=== PATIENT | female | born 1985 | race Caucasian/White ===

== ENCOUNTER 2016-06-18 05:43 | Inpatient (IN) | payer BC, OTHER ==
[~2016-06-18] VITALS: Ht 154.9 cm; Wt 72.6 kg
[2016-06-18] VITALS (12 sets, daily range): BP systolic 100–126; BP diastolic 41–76
[~2016-06-18 05:43] MED LIST: PNV1TABL25 PO
[2016-06-18] MEDS ORDERED: OXYTOCIN 30 UNIT/500 ML PREMIX 500 ML IV PRN ×2 (06:45→09:00)
[2016-06-18] MEDS ORDERED: 0.9 % SODIUM CHLORIDE 10 ML DISP.SYRIN. IV PRN ×2 (06:45→09:00)
[2016-06-18] MEDS ORDERED: IBUPROFEN 600 MG TABLET. PO PRN (06:45)
[2016-06-18] MEDS ORDERED: CITRIC ACID/SODIUM CITRATE 30 ML SOLUTION. PO PRN (06:45)
[2016-06-18 06:58] LABS: BASO % 1 % (0-3); EOS % 3 % (0-3); HEMATOCRIT 36.3 % (36.0-47.0); HEMOGLOBIN 12.4 g/dL (12.0-15.5); LYMPH # 1.5 x10^3/uL (1.0-4.8); LYMPH % 22 % (24-48); MEAN CORPUSCULAR HEMOGLOBIN 31 pg (25-35); MEAN CORPUSCULAR HGB CONC 34 g/dL (31-37); MEAN CORPUSCULAR VOLUME 90 fL (79-100); MONO % 8 % (0-9); NEUT % 67 % (31-73); PLATELET COUNT 157 x10^3/uL (140-400); RED BLOOD COUNT 4.04 x10^6/uL (3.50-5.40); WHITE BLOOD COUNT 6.8 x10^3/uL (4.0-11.0)
[2016-06-18] MEDS: IV RINGERS,LACTATED 1000ML 1,000 ML IV PRN ×3 (06:59→18:34)
[2016-06-18] MEDS ORDERED: CEFAZOLIN 2GM PREMIX 50 ML IV ONE (07:00)
[2016-06-18] MEDS ORDERED: FAMOTIDINE 20 MG/2 ML VIAL ONE (07:06)
[2016-06-18] MEDS ORDERED: ONDANSETRON PF 4 MG/2 ML VIAL. ONE (07:06)
[2016-06-18] MEDS ORDERED: MORPHINE PF 5 MG/10 ML VIAL. ONE (07:07)
[2016-06-18] MEDS ORDERED: FENTANYL PF 100 MCG/2 ML VIAL. ONE (07:07)
[2016-06-18] MEDS ORDERED: OXYTOCIN 10 UNIT/ML VIAL. ONE ×2 (07:07→08:09)
[2016-06-18] MEDS ORDERED: SUCCINYLCHOLINE 200 MG/10 ML VIAL. ONE (07:08)
--- NOTE | 2016-06-18 07:23 | PDOC1 ---
OB - History Hx of Present Care: Good Care Ultrasounds: Normal mid trimester US Obstetrical Complications: None Medical Complications: None Past Family/Social History * Past Medical, Surgical, Family and Obstetric Histories reviewed from chart. Rubella: Immune RPR/VDRL: Negative GBS Status: Negative HBsAG: Negative OB - Chief Complaint & HPI Date of Admission: Date of Admission: Jun 18, 2016 at 05:43 Chief Complaint/History : 2 Para: 1 EGA: 39 Reason for admission: section Indication for : desires repeat Admission Nurse Assessment Rev: Yes Problems: OB - Admission Exam Physical Exam Vitals: VS - Last 72 Hours, by Label Date Time Temp Pulse Resp B/P Pulse Ox O2 Delivery O2 Flow Rate FiO2 06/18/16 07:11 98.2 74 20 106/76 98.2 HEENT: Normal Heart: Regular Rate Lungs: Clear Abdomen: Gravid, Non tender, Soft Extremities: Edema Reflexes: Normal Cervical Dilatation: Fingertip Effacement: 25% Station: -3 Membranes: Intact Heart Rate: Normal Accelerations: Accelerations Present Decelerations: No decelerations Contractions on Admission: >10 Minutes Apart Intensity: Mild Text A: 39 wks IUP Previous c/s P: Admit for repeat c/s. FIDELINA MCQUEEN Jr, MD Jun 18, 2016 07:23
[2016-06-18] MEDS ORDERED: EPHEDRINE PF IN SALINE 50 MG/5 ML DISP.SYRIN. IV ONE (07:51)
[2016-06-18] MEDS ORDERED: PHENYLEPHRINE in 0.9% NACL PF 1 MG/10 ML DISP.SYRIN. IV ONE (08:33)
--- NOTE | 2016-06-18 08:47 | PDOC4 ---
OB Operative Note PRE OP DIAGNOSIS: Previoujs C- section (umbilical hernia) POST OP DIAGNOSIS: Other (Same) OPERATION PERFORMED: R KTSC (and hernia repair) Surgeon Dr. Astorga Anesthesia: Regional (Spinal) Blood Loss 800 ml Specimen placenta and infant OB Findings: Position (Vertex), Sex (Male), (8/9), Weight (3495 Gram), Fluid (Clear) Complications none Additional Remarks pt. FIDELINA Leung Jr, MD Jun 18, 2016 08:47
[2016-06-18] MEDS ORDERED: MAG HYDROX/ALUMINUM HYD/SIMETH 30 ML ORAL.SUSP PO PRN (09:00)
[2016-06-18] MEDS ORDERED: ONDANSETRON PF 4 MG/2 ML VIAL. IV PRN (09:00)
[2016-06-18] MEDS ORDERED: KETOROLAC TROMETHAMINE 30 MG/ML SYRINGE. IV PRN (09:00)
[2016-06-18] MEDS ORDERED: DIPHENHYDRAMINE ORAL ELIXIR 12.5 MG/5 ML. PO PRN (09:00)
[2016-06-18] MEDS ORDERED: ZOLPIDEM 5 MG TABLET. PO PRN (09:00)
[2016-06-18] MEDS ORDERED: OXYCODONE/APAP 5/325 TABLET. PO PRN (09:00)
[2016-06-18] MEDS ORDERED: SIMETHICONE 80 MG TAB.CHEW PO PRN (09:00)
--- NOTE | 2016-06-18 10:21 | OP ---
DATE OF SURGERY: 06/18/2016 PREOPERATIVE DIAGNOSES: 1. A 39 weeks intrauterine . 2. Previous section. 3. Umbilical hernia. POSTOPERATIVE DIAGNOSES: 1. A 39 weeks intrauterine . 2. Previous section. 3. Umbilical hernia. PROCEDURES: 1. Repeat low transverse section. 2. Umbilical hernia repair. SURGEON: Dr. Fidelina Astorga. ANESTHESIA: Spinal. ESTIMATED BLOOD LOSS: 800 mL. COMPLICATIONS: None. FINDINGS: Viable male , Apgars 8 and 9. Weight 3495 grams. Three-vessel cord placenta delivered manually intact. There was also a 3 cm anterior fundal fibroid that was subserosal. There was also umbilical hernia about 3 cm size in diameter. SUMMARY: This 30-year-old 2, para 1 at 39 weeks ____ presents for repeat section as well as umbilical hernia repair. The patient was counseled on risks, benefits and expectations. She is also counseled on skin scar revision. She desires to proceed. DESCRIPTION OF PROCEDURE: The patient was taken to surgery suite and placed in dorsal supine position. She was prepped with ChloraPrep and draped in a sterile fashion. After adequate anesthesia, elliptical incision was made around the previous Pfannenstiel skin incision scar and was removed the aid of scalpel. A scalpel was then used to proceed with an incision through the fascia. The fascia was extended laterally using curved Amin scissors. The superior edge of the fascia was grasped with two Simba clamps and dissected free of the abdominal rectus muscle using blunt dissection along with sharp dissection using curved Amin scissors. Same process took place inferiorly. The abdominal rectus muscles were then dissected with sharp dissection at the midline using curved Amin scissors. The peritoneum was grasped with 2 hemostats and entered sharply with Metzenbaum scissors. This incision was extended superiorly as well as inferiorly. The Delon ring retractor was placed. Low transverse hysterotomy incision was made with scalpel down to the amniotic sac. Hysterotomy incision was extended laterally and superiorly digitally. Amniotomy was performed with ____. With the aid of fundal pressure, the infant's head was delivered in a smooth atraumatic manner. With additional fundal pressure, the anterior shoulder was delivered followed by posterior shoulder and rest of male infant was delivered. Infant was suctioned with bulb syringe orally and nasally, umbilical cord was clamped twice and cut. A viable male was handed to waiting nursing staff. Umbilical cord blood was then obtained. Three-vessel cord placenta was delivered manually intact. Uterus was then exteriorized, cleared of clot and debris with a moist lap. There was a 3 cm fibroid on the anterior portion of the fundus that was subserosal. The hysterotomy incision was reapproximated using 1-0 Vicryl suture in a running locked fashion. The [id number] sutures were placed in the right apex of the hysterotomy incision for better hemostasis. Uterus palpated firm. Fallopian tubes and ovaries appeared normal bilaterally. Posterior cul-de-sac was cleared of clot and debris with a moist lap. Uterus was returned to the abdomen. Pericolic gutters were cleared of clot and debris with moist lap. Hysterotomy incision was hemostatic. We then proceeded with the umbilical repair. The umbilical hernia was identified and palpated. The fascia was reapproximated using 0 Vicryl suture in a running fashion over 3-4 cm area. We then placed Interceed over the hysterotomy incision in an inverted T fashion. The Delon ring retractor was removed. The peritoneum was reapproximated using 1-0 Vicryl suture in running fashion. Fascia was reapproximated using 0 Vicryl suture in running fashion. Skin was reapproximated using 4-0 Vicryl suture in subcuticular manner. The patient tolerated the procedure well and was taken to recovery room in stable condition. Sponge and needle counts correct x 3. FIDELINA ASTROGA MD DR: TYRONE/emir JOB#: [id number] / [id number]
[2016-06-18] MEDS ORDERED: MEPERIDINE PF 25 MG/ML VIAL. IV PRN (11:45)
[2016-06-18 13:27] LABS: BILIRUBIN,URINE NEGATIVE (NEG); GLUCOSE,URINE NEGATIVE (NEG); NITRITE,URINE NEGATIVE (NEG); PROTEIN,URINE NEGATIVE (NEG-TRACE); UROBILINOGEN,URINE 0.2 mg/dL (0.2 mg/dL)
[2016-06-18 13:43] LABS: BACTERIA,URINE 0 /HPF (0-FEW); RBC,URINE 0 /HPF (0-2); SQUAMOUS EPITHELIAL CELL,UR MOD /LPF; WBC,URINE 0 /HPF (0-4)
[2016-06-18] MEDS: FERROUS SULFATE 325 MG TABLET PO SCH (17:00)
[2016-06-18] MEDS ORDERED: DIPHENHYDRAMINE 50 MG/ML VIAL IVP PRN (17:45)
[2016-06-18] MEDS ORDERED: DIPHENHYDRAMINE HCL 25 MG CAPSULE PO PRN ×2 (18:30)
[2016-06-19] VITALS (7 sets, daily range): BP systolic 96–113; BP diastolic 46–81
[2016-06-19] MEDS: IV RINGERS,LACTATED 1000ML 1,000 ML IV PRN (00:35)
[2016-06-19] MEDS ORDERED: AMMONIA AROMATIC 15% INHALANT AMPUL. ONE (04:29)
[2016-06-19 04:46] LABS: BASO % 1 % (0-3); EOS % 2 % (0-3); HEMATOCRIT 29.1 % (36.0-47.0); HEMOGLOBIN 9.8 g/dL (12.0-15.5); LYMPH # 1.1 x10^3/uL (1.0-4.8); LYMPH % 20 % (24-48); MEAN CORPUSCULAR HEMOGLOBIN 31 pg (25-35); MEAN CORPUSCULAR HGB CONC 34 g/dL (31-37); MEAN CORPUSCULAR VOLUME 91 fL (79-100); MONO % 7 % (0-9); NEUT % 71 % (31-73); PLATELET COUNT 117 x10^3/uL (140-400); WHITE BLOOD COUNT 5.7 x10^3/uL (4.0-11.0)
[2016-06-19] MEDS: FERROUS SULFATE 325 MG TABLET PO SCH ×2 (10:15→16:41)
--- NOTE | 2016-06-19 14:41 | PDOC ---
OB Progress Note Date of Service 06/19/16 Time of Evaluation 1440 Problem List Problems Medical Problems: (1) delivery delivered Status: Acute (2) Umbilical cord hernia of fetus affecting management of mother, antepartum Status: Acute Notes Pt. feeling well. No complaints. Pain controlled. Breast feeding. Lochia minimal. Ambulating and voiding without difficulty. Lab Laboratory Tests Test 06/18/16 06:20 06/18/16 06:30 06/19/16 03:43 White Blood Count 6.8x10^3/uL (4.0-11.0) 5.7x10^3/uL (4.0-11.0) Red Blood Count 4.04x10^6/uL (3.50-5.40) 3.20x10^6/uL (3.50-5.40) Hemoglobin 12.4g/dL (12.0-15.5) 9.8g/dL (12.0-15.5) Hematocrit 36.3% (36.0-47.0) 29.1% (36.0-47.0) Mean Corpuscular Volume 90fL (79-100) 91fL (79-100) Mean Corpuscular Hemoglobin 31pg (25-35) 31pg (25-35) Mean Corpuscular Hemoglobin Concent 34g/dL (31-37) 34g/dL (31-37) Red Cell Distribution Width 13.0% (11.5-14.5) 13.0% (11.5-14.5) Platelet Count 157x10^3/uL (140-400) 117x10^3/uL (140-400) Neutrophils (%) (Auto) 67% (31-73) 71% (31-73) Lymphocytes (%) (Auto) 22% (24-48) 20% (24-48) Monocytes (%) (Auto) 8% (0-9) 7% (0-9) Eosinophils (%) (Auto) 3% (0-3) 2% (0-3) Basophils (%) (Auto) 1% (0-3) 1% (0-3) Neutrophils # (Auto) 4.5x10^3uL (1.8-7.7) 4.1x10^3uL (1.8-7.7) Lymphocytes # (Auto) 1.5x10^3/uL (1.0-4.8) 1.1x10^3/uL (1.0-4.8) Monocytes # (Auto) 0.5x10^3/uL (0.0-1.1) 0.4x10^3/uL (0.0-1.1) Eosinophils # (Auto) 0.2x10^3/uL (0.0-0.7) 0.1x10^3/uL (0.0-0.7) Basophils # (Auto) 0.0x10^3/uL (0.0-0.2) 0.0x10^3/uL (0.0-0.2) Urine Collection Type Unknown Urine Color Yellow Urine Clarity Cloudy Urine pH 6.0 Urine Specific Ava >=1.030 Urine Protein Negativemg/dL (NEG-TRACE) Urine Glucose (UA) Negativemg/dL (NEG) Urine Ketones (Stick) Negativemg/dL (NEG) Urine Blood Negative (NEG) Urine Nitrite Negative (NEG) Urine Bilirubin Negative (NEG) Urine Urobilinogen Dipstick 0.2mg/dL (0.2 mg/dL) Urine Leukocyte Esterase Small (NEG) Urine RBC 0/HPF (0-2) Urine WBC 0/HPF (0-4) Urine Squamous Epithelial Cells Mod/LPF Urine Amorphous Sediment Present/HPF Urine Bacteria 0/HPF (0-FEW) Laboratory Tests Test 06/19/16 03:43 White Blood Count 5.7x10^3/uL (4.0-11.0) Red Blood Count 3.20x10^6/uL (3.50-5.40) Hemoglobin 9.8g/dL (12.0-15.5) Hematocrit 29.1% (36.0-47.0) Mean Corpuscular Volume 91fL (79-100) Mean Corpuscular Hemoglobin 31pg (25-35) Mean Corpuscular Hemoglobin Concent 34g/dL (31-37) Red Cell Distribution Width 13.0% (11.5-14.5) Platelet Count 117x10^3/uL (140-400) Neutrophils (%) (Auto) 71% (31-73) Lymphocytes (%) (Auto) 20% (24-48) Monocytes (%) (Auto) 7% (0-9) Eosinophils (%) (Auto) 2% (0-3) Basophils (%) (Auto) 1% (0-3) Neutrophils # (Auto) 4.1x10^3uL (1.8-7.7) Lymphocytes # (Auto) 1.1x10^3/uL (1.0-4.8) Monocytes # (Auto) 0.4x10^3/uL (0.0-1.1) Eosinophils # (Auto) 0.1x10^3/uL (0.0-0.7) Basophils # (Auto) 0.0x10^3/uL (0.0-0.2) Medications Current Medications Sodium Chloride 3 ml 3 ml QSHIFT PRN IV AFTER MEDS AND BLOOD DRAWS; Start at 06:45; Stop 06/18/16 at 20:36; Status DC Lactated Ringer's (Iv Lactated Ringers) 1,000 ml @ 125 mls/hr Q8H PRN IV PER PROTOCOL Last administered on 06/19/16 00:35; Start 06/18/16 at 06:45 Citric Acid/ Sodium Citrate 30 ml 30 ml 1X PRN PRN PO DYSPEPSIA Last administered on 06/18/16 07:01; Start 06/18/16 at 06:45; Stop 06/18/16 at 20:37; Status DC Cefazolin Sodium/ Dextrose 50 ml @ 100 mls/hr 1X ONCE IV Last administered on 06/18/16 07:02; Start 06/18/16 at 07:00; Stop 06/18/16 at 20:37; Status DC Oxytocin/Sodium Chloride (Oxytocin Premix Infusion) 500 ml @ 0 mls/hr CONT PRN PRN IV Post delivery bleeding; Start 06/18/16 at 06:45 Ibuprofen (Motrin) 600 mg PRN Q6HRS PRN PO MODERATE PAIN; Start 06/18/16 at 06: 45; Stop 06/18/16 at 20:37; Status DC Ondansetron HCl (Zofran) 4 mg STK-MED ONCE .ROUTE ; Start 06/18/16 at 07:06; Stop 06/18/16 at 20:36; Status DC Famotidine (Pepcid) 20 mg STK-MED ONCE .ROUTE ; Start 06/18/16 at 07:06; Stop 06/18/16 at 20:36; Status DC Fentanyl Citrate (Fentanyl 2ml Vial) 100 mcg STK-MED ONCE .ROUTE ; Start at 07:07; Stop 06/18/16 at 20:36; Status DC Oxytocin (Pitocin) 10 unit STK-MED ONCE .ROUTE ; Start 06/18/16 at 07:07; Stop at 20:36; Status DC Morphine Sulfate (Morphine Preservative Free) 5 mg STK-MED ONCE .ROUTE ; Start 06/18/16 at 07:07; Stop 06/18/16 at 20:36; Status DC Succinylcholine Chloride (Anectine) 200 mg STK-MED ONCE .ROUTE ; Start 06/18/16 at 07:08; Stop 06/18/16 at 20:36; Status DC Ephedrine Sulfate 50 mg STK-MED ONCE IV ; Start 06/18/16 at 07:51; Stop 06/18/16 at 20:36; Status DC Oxytocin (Pitocin) 10 unit STK-MED ONCE .ROUTE ; Start 06/18/16 at 08:09; Stop at 20:36; Status DC Phenylephrine HCl 1 mg STK-MED ONCE IV ; Start 06/18/16 at 08:33; Stop 06/18/16 at 20:36; Status DC Sodium Chloride 3 ml 3 ml QSHIFT PRN IV AFTER MEDS AND BLOOD DRAWS; Start at 09:00 Oxytocin/Sodium Chloride (Oxytocin Premix Infusion) 500 ml @ 125 mls/hr CONT PRN IV EXCESSIVE POST- BLEEDING; Start 06/18/16 at 09:00; Stop 06/18/16 at 16:59; Status DC Ibuprofen (Motrin) 800 mg PRN Q8HRS PRN PO INFLAMMATION; Start 06/18/16 at 09:00 Ondansetron HCl (Zofran) 4 mg PRN Q6HRS PRN IV NAUSEA/VOMITING; Start 06/18/16 at 09:00 Docusate Sodium (Colace) 100 mg PRN BID PRN PO CONSTIPATION; Start 06/18/16 at 09:00 Al Hydrox/Mg Hydrox/Simethicone (Mylanta Plus Xs) 30 ml PRN Q4HRS PRN PO HEARTBURN / GAS; Start 06/18/16 at 09:00 Simethicone (Gas-X) 80 mg PRN AFTMEALHC PRN PO GAS / BLOATING; Start 06/18/16 at 09:00 Diphenhydramine HCl (Benadryl Oral Elixir) 12.5 mg PRN Q6HRS PRN PO ITCHING; Start 06/18/16 at 09:00; Stop 06/18/16 at 18:19; Status DC Ferrous Sulfate (Feosol) 325 mg BIDWMEALS PO Last administered on 06/19/16 10: 15; Start 06/18/16 at 17:00 Zolpidem Tartrate (Ambien) 5 mg PRN QHS PRN PO INSOMNIA, MAY REPEAT X1; Start 06/18/16 at 09:00 Oxycodone/ Acetaminophen (Percocet 5/325) 2 tab PRN Q4HRS PRN PO MODERATE PAIN , SEVERE PAIN; Start 06/18/16 at 09:00 Ketorolac Tromethamine (Toradol) 30 mg PRN Q6HRS PRN IV PAIN Last administered on 06/18/16 11:15; Start 06/18/16 at 09:00; Stop 06/23/16 at 08:59 Meperidine HCl (Demerol) 25 mg PRN 1X PRN IV SHIVERING Last administered on 06/18 11:54; Start 06/18/16 at 11:45; Stop 06/18/16 at 20:36; Status DC Diphenhydramine HCl (Benadryl) 50 mg PRN Q6HRS PRN IVP ITCHING Last administered on 06/18/16 18:34; Start 06/18/16 at 17:45 Diphenhydramine HCl (Benadryl) 25 mg PRN Q6HRS PRN PO ITCHING, 1ST CHOICE; Start 06/18/16 at 18:30 Diphenhydramine HCl (Benadryl) 50 mg PRN Q6HRS PRN PO ITCHING, 2ND CHOICE; Start 06/18/16 at 18:30 Ammonia (Aromatic Spirit) (Amoply) 1 each STK-MED ONCE .ROUTE Last administered on 06/19/16 04:29; Start 06/19/16 at 04:29; Stop 06/19/16 at 04:30; Status DC Active Scripts Active Reported Tablet (Pnv Cmb#95/Ferrous Fumarate/Fa) 1 Each Tablet 1 Tab PO DAILY Exam Abd: soft, mild tenderness, fundus firm Incision site: clean and intact Assessment POD#1 s/p repeat c/s Plan of Care: Continue current Tx, Mgmt FIDELINA MCQUEEN Jr, MD Jun 19, 2016 14:40
[2016-06-19] MEDS: IBUPROFEN 800 MG TABLET. PO PRN (16:41)
[2016-06-19] MEDS: DOCUSATE SODIUM 100 MG CAPSULE PO PRN (20:20)
[2016-06-20] MEDS: IBUPROFEN 800 MG TABLET. PO PRN ×2 (00:53→08:54)
[2016-06-20 00:55] VITALS: BP 109/69
[2016-06-20 05:00] VITALS: BP 107/61
[2016-06-20] MEDS: FERROUS SULFATE 325 MG TABLET PO SCH (08:53)
[2016-06-20] MEDS: DOCUSATE SODIUM 100 MG CAPSULE PO PRN (08:53)
[2016-06-20 10:51] VITALS: BP 104/67
--- NOTE | 2016-06-20 11:53 | PDOC ---
OB Progress Note Date of Service 06/20/16 Time of Evaluation 1150 Problem List Problems Medical Problems: (1) delivery delivered Status: Acute (2) Umbilical cord hernia of fetus affecting management of mother, antepartum Status: Acute Notes Pt. feeling well. No complaints. Lab Laboratory Tests Test 06/19/16 03:43 White Blood Count 5.7x10^3/uL (4.0-11.0) Red Blood Count 3.20x10^6/uL (3.50-5.40) Hemoglobin 9.8g/dL (12.0-15.5) Hematocrit 29.1% (36.0-47.0) Mean Corpuscular Volume 91fL (79-100) Mean Corpuscular Hemoglobin 31pg (25-35) Mean Corpuscular Hemoglobin Concent 34g/dL (31-37) Red Cell Distribution Width 13.0% (11.5-14.5) Platelet Count 117x10^3/uL (140-400) Neutrophils (%) (Auto) 71% (31-73) Lymphocytes (%) (Auto) 20% (24-48) Monocytes (%) (Auto) 7% (0-9) Eosinophils (%) (Auto) 2% (0-3) Basophils (%) (Auto) 1% (0-3) Neutrophils # (Auto) 4.1x10^3uL (1.8-7.7) Lymphocytes # (Auto) 1.1x10^3/uL (1.0-4.8) Monocytes # (Auto) 0.4x10^3/uL (0.0-1.1) Eosinophils # (Auto) 0.1x10^3/uL (0.0-0.7) Basophils # (Auto) 0.0x10^3/uL (0.0-0.2) Medications Current Medications Sodium Chloride 3 ml 3 ml QSHIFT PRN IV AFTER MEDS AND BLOOD DRAWS; Start at 06:45; Stop 06/18/16 at 20:36; Status DC Lactated Ringer's (Iv Lactated Ringers) 1,000 ml @ 125 mls/hr Q8H PRN IV PER PROTOCOL Last administered on 06/19/16t 00:35; Start 06/18/16 at 06:45 Citric Acid/ Sodium Citrate 30 ml 30 ml 1X PRN PRN PO DYSPEPSIA Last administered on 06/18/16 07:01; Start 06/18/16 at 06:45; Stop 06/18/16 at 20:37; Status DC Cefazolin Sodium/ Dextrose 50 ml @ 100 mls/hr 1X ONCE IV Last administered on 06/18/16 07:02; Start 06/18/16 at 07:00; Stop 06/18/16 at 20:37; Status DC Oxytocin/Sodium Chloride (Oxytocin Premix Infusion) 500 ml @ 0 mls/hr CONT PRN PRN IV Post delivery bleeding; Start 06/18/16 at 06:45 Ibuprofen (Motrin) 600 mg PRN Q6HRS PRN PO MODERATE PAIN; Start 06/18/16 at 06: 45; Stop 06/18/16 at 20:37; Status DC Ondansetron HCl (Zofran) 4 mg STK-MED ONCE .ROUTE ; Start 06/18/16 at 07:06; Stop 06/18/16 at 20:36; Status DC Famotidine (Pepcid) 20 mg STK-MED ONCE .ROUTE ; Start 06/18/16 at 07:06; Stop 06/18/16 at 20:36; Status DC Fentanyl Citrate (Fentanyl 2ml Vial) 100 mcg STK-MED ONCE .ROUTE ; Start at 07:07; Stop 06/18/16 at 20:36; Status DC Oxytocin (Pitocin) 10 unit STK-MED ONCE .ROUTE ; Start 06/18/16 at 07:07; Stop at 20:36; Status DC Morphine Sulfate (Morphine Preservative Free) 5 mg STK-MED ONCE .ROUTE ; Start 06/18/16 at 07:07; Stop 06/18/16 at 20:36; Status DC Succinylcholine Chloride (Anectine) 200 mg STK-MED ONCE .ROUTE ; Start 06/18/16 at 07:08; Stop 06/18/16 at 20:36; Status DC Ephedrine Sulfate 50 mg STK-MED ONCE IV ; Start 06/18/16 at 07:51; Stop 06/18/16 at 20:36; Status DC Oxytocin (Pitocin) 10 unit STK-MED ONCE .ROUTE ; Start 06/18/16 at 08:09; Stop at 20:36; Status DC Phenylephrine HCl 1 mg STK-MED ONCE IV ; Start 06/18/16 at 08:33; Stop 06/18/16 at 20:36; Status DC Sodium Chloride 3 ml 3 ml QSHIFT PRN IV AFTER MEDS AND BLOOD DRAWS; Start at 09:00 Oxytocin/Sodium Chloride (Oxytocin Premix Infusion) 500 ml @ 125 mls/hr CONT PRN IV EXCESSIVE POST- BLEEDING; Start 06/18/16 at 09:00; Stop 06/18/16 at 16:59; Status DC Ibuprofen (Motrin) 800 mg PRN Q8HRS PRN PO INFLAMMATION Last administered on 08:54; Start 06/18/16 at 09:00 Ondansetron HCl (Zofran) 4 mg PRN Q6HRS PRN IV NAUSEA/VOMITING; Start 06/18/16 at 09:00 Docusate Sodium (Colace) 100 mg PRN BID PRN PO CONSTIPATION Last administered on 06/20/16 08:53; Start 06/18/16 at 09:00 Al Hydrox/Mg Hydrox/Simethicone (Mylanta Plus Xs) 30 ml PRN Q4HRS PRN PO HEARTBURN / GAS; Start 06/18/16 at 09:00 Simethicone (Gas-X) 80 mg PRN AFTMEALHC PRN PO GAS / BLOATING Last administered on 06/19/16 20:20; Start 06/18/16 at 09:00 Diphenhydramine HCl (Benadryl Oral Elixir) 12.5 mg PRN Q6HRS PRN PO ITCHING; Start 06/18/16 at 09:00; Stop 06/18/16 at 18:19; Status DC Ferrous Sulfate (Feosol) 325 mg BIDWMEALS PO Last administered on 06/20/16 08: 53; Start 06/18/16 at 17:00 Zolpidem Tartrate (Ambien) 5 mg PRN QHS PRN PO INSOMNIA, MAY REPEAT X1; Start 06/18/16 at 09:00 Oxycodone/ Acetaminophen (Percocet 5/325) 2 tab PRN Q4HRS PRN PO MODERATE PAIN , SEVERE PAIN; Start 06/18/16 at 09:00 Ketorolac Tromethamine (Toradol) 30 mg PRN Q6HRS PRN IV PAIN Last administered on 06/18/16 11:15; Start 06/18/16 at 09:00; Stop 06/23/16 at 08:59 Meperidine HCl (Demerol) 25 mg PRN 1X PRN IV SHIVERING Last administered on 06/18 11:54; Start 06/18/16 at 11:45; Stop 06/18/16 at 20:36; Status DC Diphenhydramine HCl (Benadryl) 50 mg PRN Q6HRS PRN IVP ITCHING Last administered on 06/18/16 18:34; Start 06/18/16 at 17:45 Diphenhydramine HCl (Benadryl) 25 mg PRN Q6HRS PRN PO ITCHING, 1ST CHOICE; Start 06/18/16 at 18:30 Diphenhydramine HCl (Benadryl) 50 mg PRN Q6HRS PRN PO ITCHING, 2ND CHOICE; Start 06/18/16 at 18:30 Ammonia (Aromatic Spirit) (Amoply) 1 each STK-MED ONCE .ROUTE Last administered on 06/19/16 04:29; Start 06/19/16 at 04:29; Stop 06/19/16 at 04:30; Status DC Active Scripts Active Reported Tablet (Pnv Cmb#95/Ferrous Fumarate/Fa) 1 Each Tablet 1 Tab PO DAILY Exam Abd: soft, mild tenderness, fundus firm INcision site: dry and intact. Assessment POD#2 s/p repeat c/s Plan of Care: See new orders (D/c home) FIDELINA MCQUEEN Jr, MD Jun 20, 2016 11:53
[2016-06-20] MEDS ORDERED: IBUP-1060 PO (11:54)
--- NOTE | 2016-06-20 11:54 | DISCH ---
DISCHARGE INSTRUCTIONS Condition on Discharge Condition on Discharge: Stable Activity After Discharge Activity Instructions for Disc: Activity as tolerated Lifting Instructions after Dis: No heavy lifting Driving Instructions after Dis: No driving for 2 weeks Diet after Discharge Diet after Discharge: Regular Contacting the DRRobert after DC Call your doctor for: Concerns you may have Follow-Up Follow up with: Dr. Astorga in 2 weeks. FIDELINA ASTORGA Jr, MD Jun 20, 2016 11:54
[2016-06-20] MEDS ORDERED: OXYC-323 PO (11:55)
[2016-06-20] MEDS ORDERED: DOCU-27 PO (11:55)
== END 2016-06-20 12:35 | disposition home or self-care (01) | DRG 766 ==
LOC: 3 SO LND 05:43
PROVIDERS: ADMIT Obstetrics & Gynecology; ATTEND Obstetrics & Gynecology
PROC: 10D00Z1 Extraction of Products of Conception, Low, Open Approach (ICD-10-PCS; principal; 2016-06-18)
PROC: 0WQF0ZZ Repair Abdominal Wall, Open Approach (ICD-10-PCS; 2016-06-18)
DX: O34.211 Maternal care for low transverse scar from previous cesarean delivery (principal); K42.9 Umbilical hernia without obstruction or gangrene; Z3A.39 39 weeks gestation of pregnancy; Z37.0 Single live birth
CPT/HCPCS: 36415; 81001; 85027; 85461; 86593; 86850; 86900; 86901; 87086; J0330; J0690; J1200; J1885; J2175; J2270; J2370; J2405; J2590; J2791; J3010; J7120; S0028